=== PATIENT | female | born 1980 | race Caucasian/White ===

== ENCOUNTER 2021-05-01 02:15 | Observation (INO) | payer OTHER ==
[2021-05-01] MEDS ORDERED: Sodium Chloride 0.9% 1000 ML 1,000 ML IV STA (02:56)
[2021-05-01] MEDS ORDERED: BABY ASPIRIN 81 MG CHEW PO ONE (02:56)
[2021-05-01] MEDS ORDERED: solu-MEDROL 125 MG, Sterile H2O 10 ml 2 ML IV ONE ×2 (02:58)
[2021-05-01] MEDS ORDERED: DUONEB 0.5-3 MG/3 ml Neb IH ONE ×2 (02:58→03:07)
[2021-05-01] MEDS ORDERED: Sodium Chloride 0.9% 1000 ML 1,000 ML ONE (03:04)
[2021-05-01] MEDS ORDERED: solu-MEDROL ONE (03:04)
--- NOTE | 2021-05-01 03:06 | ERPHSYRPT ---
- History of Present Illness Time Seen by Provider: 05/01/21 02:50 Source: patient Exam Limitations: no limitations Patient Subjective Stated Complaint: C/O heart palpitations upon arrival. Patient then stated that she has been SOB and coughing for a few days. States that this is not unusual for her because she has COPD but now she is coughing up yellow sputum and started running a temperature of 102. Triage Nursing Assessment: Patient ambulated back to ED. Patient SOB with audible wheezing. She is alert and oriented and answering questions a ppropriately. O2 sats 89% on room air upon arrival. 02 at 2L per N/C applied and oxygen saturation increased to 95%. Physician History: Patient is here with wheezing, hypoxia, not feeling well. Patient states that she had Covid in February and had a negative Covid test this weekend. 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 She has a history of asthma, smoking, obesity . She states that she has been using her home albuterol. Denies she presents with palpitations, wheezing, shortness of breath. She was placed on 2 L of oxygen due to an O2 sat of 89% upon arrival. She has no falls, trauma. She has no documented fever here. Patient has been taking Tylenol at home. Timing/Duration: today Activities at Onset: none Severity of Dyspnea-Max: mild Severity of Dyspnea-Current: mild Possible Cause: smoke exposure Modifying Factors: Improves With: oxygen Associated Symptoms: constant, wheezing, No chest pain/discomfort Allergies/Adverse Reactions: meperidine HCl [From Demerol] Allergy (Verified 05/01/21 02:22) Vomiting Home Medications: Albuterol Sulfate [Albuterol Sulfate Hfa] 2 puff PO Q4H PRN PRN 05/01/21 [History] Hx Tetanus, Diphtheria Vaccination/Date Given: Yes Hx Influenza Vaccination/Date Given: No Hx Pneumococcal Vaccination/Date Given: No Immunizations Up to Date: Yes Travel Risk - International Travel Have you traveled outside of the country in past 3 weeks: No - Coronavirus Screening Are you exhibiting any of the following symptoms?: Yes Symptoms: Shortness of Breath Close contact with a COVID-19 positive Pt in past 14-21 Days: Yes - Vaccine Status Have you recieved a Covid-19 vaccination: Yes Broke Man: [employer] POS - Vaccination Dates Date of 2cond Vaccination (if applicable): February 2020 - Review of Systems Constitutional: No Fever, No Chills Eyes: No Symptoms Ears, Nose, & Throat: No Symptoms Respiratory: Dyspnea, Wheezing, No Cough Cardiac: Palpitations, No Chest Pain, No Edema, No Syncope Abdominal/Gastrointestinal: No Abdominal Pain, No Nausea, No Vomiting, No Diarrhea Genitourinary Symptoms: No Dysuria Musculoskeletal: No Back Pain, No Neck Pain Skin: No Rash Neurological: No Dizziness, No Focal Weakness, No Sensory Changes Psychological: No Symptoms Endocrine: No Symptoms All Other Systems: Reviewed and Negative - Past Medical History Pertinent Past Medical History: Yes Neurological History: No Pertinent History ENT History: No Pertinent History Cardiac History: No Pertinent History Respiratory History: Asthma, COPD, Emphysema Endocrine Medical History: No Pertinent History Musculoskeletal History: No Pertinent History, Other GI Medical History: No Pertinent History History: No Pertinent History Psycho-Social History: Depression Female Reproductive Disorders: No Pertinent History - Past Surgical History Past Surgical History: Yes Neuro Surgical History: No Pertinent History Cardiac: No Pertinent History Respiratory: No Pertinent History Gastrointestinal: No Pertinent History Genitourinary: No Pertinent History Musculoskeletal: No Pertinent History Female Surgical History: Tubal Ligation - Social History Smoking Status: Current every day smoker How long have you smoked: 20 years Exposure to second hand smoke: Yes Drug Use: marijuana Patient Lives Alone: No - Female History Hx Last Menstrual Period: NOW Hx Now: No - Nursing Vital Signs Nursing Vital Signs: Initial Vital Signs Temperature 99.1 F 05/01/21 02:23 Pulse Rate 114 H 05/01/21 02:23 Respiratory Rate 24 05/01/21 02:23 Blood Pressure 123/73 05/01/21 02:23 O2 Sat by Pulse Oximetry 90 L 05/01/21 02:23 Pain Scale Pain Intensity 0 - Physical Exam General Appearance: no apparent distress, alert, other (Overall, patient appears unwell and unhealthy.) Eye Exam: PERRL/EOMI Neck Exam: normal inspection, supple Respiratory Exam: wheezing, other (Wheezing, tachycardia, tachypnea) Cardiovascular/Chest Exam: normal heart sounds, tachycardia, No regular rate/rhythm Abdominal/Gastrointestinal Exam: soft, No tenderness, No distention, No mass Extremity Exam: non-tender, normal range of motion, normal inspection, no calf tenderness, no pedal edema Neurologic Exam: alert, oriented x 3, cooperative, stable hand II-XII nml as tested, sensation nml, No motor deficits Skin Exam: normal color, warm, No dry SpO2 Interpretation: hypoxic SpO2: 90 - Course Nursing assessment & vital signs reviewed: Yes EKG Interpreted by Me: Sinus Tach Ordered Tests: Active Orders 24 hr Category Date Time Status Field Marketing Lead STAT Care 05/01/21 02:57 Active Code Status Order ROUTINE Care 05/01/21 04:09 Ordered EKG-ER Only STAT Care 05/01/21 02:56 Active IV Care Q6H Care 05/01/21 04:09 Ordered IV Insertion STAT Care 05/01/21 02:[address] in Observation ROUTINE Care 05/01/21 04:10 Ordered [place], Apply ROUTINE Care 05/01/21 04:09 Ordered Weight,Daily 0600 Care 05/01/21 04:09 Ordered House Regular Diet Diet 05/01/21 Breakfast Ordered CHEST 1 VIEW (PORTABLE) Stat Exams 05/01/21 02:57 Taken CBC W DIFF Stat Lab 05/01/21 03:00 Completed CMP Stat Lab 05/01/21 03:00 Completed D-DIMER QUANTITATIVE Stat Lab 05/01/21 03:00 Completed HCG QUALITATIVE,SERUM Stat Lab 05/01/21 03:00 Completed INFLUENZA A+B RYAN Stat Lab 05/01/21 03:00 Completed Manual Differential NC Stat Lab 05/01/21 03:00 Completed NT PRO BNP Stat Lab 05/01/21 03:00 Completed TROPONIN Q3H Lab 05/01/21 03:00 Completed TROPONIN Q3H Lab 05/01/21 06:00 Ordered TROPONIN Q3H Lab 05/01/21 09:00 Ordered TROPONIN Q3H Lab 05/01/21 12:00 Ordered TROPONIN Q3H Lab 05/01/21 15:00 Ordered Oxygen Nasal Cannula 2 lpm RT 05/01/21 04:10 Ordered Respiratory Therapy Assessment DAILY RT 05/01/21 03:11 Active Respiratory Therapy Consult ROUTINE RT 05/01/21 04:10 Ordered Medication Summary Generic Name Dose Route Start Last Admin Trade Name Freq PRN Reason Stop Dose Admin Magnesium Sulfate/Dextrose 100 mls @ 100 mls/hr 05/01/21 04:00 05/01/21 03:54 Magnesium 1 Gm / 100 Ml D5w IV 05/01/21 05:59 100 mls/hr Q1H TANK Administration Ceftriaxone Sodium/Dextrose 2 g in 50 mls @ 100 mls/hr 05/01/21 04:03 Rocephin 2 Gm-D5w 50ml Bag IV 05/01/21 04:32 STAT STA Azithromycin 500 mg in 250 mls @ 250 mls/hr 05/01/21 04:04 Zithromax 500 Mg/ 250 Ml Nacl Premix IV 05/01/21 05:03 STAT ONE Discontinued Medications Generic Name Dose Route Start Last Admin Trade Name Freq PRN Reason Stop Dose Admin Albuterol Sulfate 5 mg 05/01/21 03:50 05/01/21 04:03 Albuterol Sulfate 2.5 Mg/3 Ml Neb IH 05/01/21 03:51 5 mg STAT ONE Administration Albuterol Sulfate Confirm 05/01/21 04:02 Albuterol Sulfate 2.5 Mg/3 Ml Neb Administered 05/01/21 04:03 Dose 2.5 mg IH .STK-MED ONE Albuterol Sulfate Confirm 05/01/21 04:04 Albuterol Sulfate 2.5 Mg/3 Ml Neb Administered 05/01/21 04:05 Dose 2.5 mg IH .STK-MED ONE Albuterol/Ipratropium 3 ml 05/01/21 02:58 05/01/21 03:08 Ipratropium/Albuterol Sulfate 3 Ml Ampul.Neb IH 05/01/21 02:59 3 ml STAT ONE Administration Albuterol/Ipratropium Confirm 05/01/21 03:07 Ipratropium/Albuterol Sulfate 3 Ml Ampul.Neb Administered 05/01/21 03:08 Dose 3 ml IH .STK-MED ONE Aspirin 324 mg 05/01/21 02:56 05/01/21 03:03 Aspirin 81 Mg Tab.Chew PO 05/01/21 02:57 324 mg STAT ONE Administration Methylprednisolone Sodium 0 mg 05/01/21 02:58 05/01/21 03:05 Succinate 125 mg/ Sterile IV 05/01/21 02:59 125 mg Water 2 ml STAT ONE Administration Sodium Chloride 1,000 mls @ 999 mls/hr 05/01/21 02:56 05/01/21 03:07 Sodium Chloride 0.9% 1000 Ml IV 05/01/21 03:56 999 mls/hr .Q1H1M STA Administration Sodium Chloride Confirm 05/01/21 03:04 Sodium Chloride 0.9% 1000 Ml Administered 05/01/21 03:05 Dose 1,000 mls @ ud .ROUTE .STK-MED ONE Methylprednisolone Sodium Succinate Confirm 05/01/21 03:04 Methylprednis Sod Succ 125 Mg/2 Ml Vial Administered 05/01/21 03:05 Dose 125 mg .ROUTE .STK-MED ONE Lab/Rad Data: Laboratory Result Diagrams 05/01/21 03:00 05/01/21 03:00 Laboratory Results 05/01/21 05/01/21 05/01/21 Range/Units 03:00 03:00 03:00 WBC (4.0-10.5) K/mm3 RBC (4.1-5.4) M/mm3 Hgb (12.0-16.0) gm/dl Hct (35-47) % MCV (78-100) fl MCH (26-32) pg MCHC (32-36) g/dl RDW (11.5-14.0) % Plt Count (150-450) K/mm3 MPV (7.5-11.0) fl Segmented Neutrophils (36.0-66.0) % Lymphocytes (Manual) (24-44) % Monocytes (Manual) (0.0-12.0) % Platelet Estimate (NORMAL) RBC Morphology D-Dimer (215-500) ng/mL Sodium (137-145) mmol/L Potassium (3.5-5.1) mmol/L Chloride (98-107) mmol/L Carbon Dioxide (22-30) mmol/L Anion Gap (5-15) MEQ/L BUN (7-17) mg/dL Creatinine (0.52-1.04) mg/dL Estimated GFR ML/MIN Glucose (74-106) mg/dL Calcium (8.4-10.2) mg/dL Total Bilirubin (0.2-1.3) mg/dL AST (14-36) U/L ALT (0-35) U/L Alkaline Phosphatase (38-126) U/L Troponin I < 0.012 (0.000-0.034) ng/mL NT-Pro-B Natriuret Pep (0-450) pg/mL Serum Total Protein (6.3-8.2) g/dL Albumin (3.5-5.0) g/dL Serum , Qual NEGATIVE (Negative) Influenza Type A Ag NEGATIVE (NEGATIVE) Influenza Type B Ag NEGATIVE (NEGATIVE) 05/01/21 05/01/21 05/01/21 Range/Units 03:00 03:00 03:00 WBC 9.9 (4.0-10.5) K/mm3 RBC 5.40 (4.1-5.4) M/mm3 Hgb 16.1 H (12.0-16.0) gm/dl Hct 51.6 H (35-47) % MCV 95.6 (78-100) fl MCH 29.8 (26-32) pg MCHC 31.2 L (32-36) g/dl RDW 13.2 (11.5-14.0) % Plt Count 166 (150-450) K/mm3 MPV 11.6 H (7.5-11.0) fl Segmented Neutrophils 68 H (36.0-66.0) % Lymphocytes (Manual) 27 (24-44) % Monocytes (Manual) 5 (0.0-12.0) % Platelet Estimate NORMAL (NORMAL) RBC Morphology NORMAL D-Dimer 409 (215-500) ng/mL Sodium 139 (137-145) mmol/L Potassium 3.9 (3.5-5.1) mmol/L Chloride 97 L (98-107) mmol/L Carbon Dioxide 33 H (22-30) mmol/L Anion Gap 12.8 (5-15) MEQ/L BUN 16 (7-17) mg/dL Creatinine 0.69 (0.52-1.04) mg/dL Estimated GFR > 60.0 ML/MIN Glucose 132 H (74-106) mg/dL Calcium 9.0 (8.4-10.2) mg/dL Total Bilirubin 0.50 (0.2-1.3) mg/dL AST 26 (14-36) U/L ALT 16 (0-35) U/L Alkaline Phosphatase 99 (38-126) U/L Troponin I (0.000-0.034) ng/mL NT-Pro-B Natriuret Pep 73.0 (0-450) pg/mL Serum Total Protein 7.6 (6.3-8.2) g/dL Albumin 4.2 (3.5-5.0) g/dL Serum , Qual (Negative) Influenza Type A Ag (NEGATIVE) Influenza Type B Ag (NEGATIVE) - Progress Progress: improved Air Movement: good Progress Note: 05/01/21 03:04 Differential diagnosis includes pulmonary embolism, pneumonia, infection, myocardial infarction, asthma attack, COPD, sleep apnea. -We will obtain basic labs, fluids, EKG, chest x-ray -We will give steroids, fluids, aspirin, breathing treatment. -We will consider CTA should D-dimer returned positive. Given that patient is currently hypoxic. We will see if she improves. 05/01/21 04:12 Patient found to continue to be hypoxic. 2 L of O2 needed despite fluids, breathing treatment, steroids. Patient will be given a second albuterol treatment with magnesium. Patient is still significantly wheezy. Chest x-ray was obtained. Bilateral infiltrates, inflammatory versus infectious. We will give a dose of Rocephin and azithromycin in the emergency department. I did discuss over the phone with on-call physician, Dr. Whitmore. He will accept the patient. I do feel this is the best course of action for the patient. I discussed with her the plan. Patient most likely also has underlying sleep apnea given her obesity and general state of health. Possible testing for this would be helpful. Influenza negative. Patient will be swabbed for Covid as an inpatient due to hospital testing procedures and policies. Negative home test this week. ED critical care statement As staff physician, I have provided critical care. Time: 45 mins Criteria for critical illness: Acute hypoxic respiratory failure in the setting of asthma with pneumonia Treatment and management provided include: Coordination of management with ETC care team, consultants, and inpatient care team. [id number] assessment of condition and response to therapy. Review and interpretation of emergent diagnostic testing. Medical chart review and completion. Direction and immediate supervision of the following therapy: Critical care was time spent personally by me on the following activities: blood draw for specimens, development of treatment plan with patient or surrogate, discussions with consultants, discussions with primary provider, interpretation of cardiac output measurements, evaluation of patient's response to treatment, examination of patient, obtaining history from patient or surrogate, ordering and performing treatments and interventions, ordering and review of laboratory studies, ordering and review of radiographic studies, pulse oximetry, re-evaluation of patient's condition and review of old charts. This time was independent of all procedures performed. Damian Johnson 05/01/21 04:[address] Ranulfo Will see patient in: hospital (observation) Counseled pt/family regarding: lab results, diagnosis, rad results, smoking cessation - Departure Departure Disposition: Extended Care Facility Clinical Impression: Acute respiratory failure, COVID-19 long hauler, Community acquired pneumonia, Asthma exacerbation in COPD Condition: Stable Critical Care Time: Yes Critical Care Time(excluding separately billable procedures): Critical 30-74 mins Referrals: Gisele Nino BRIQUETTE MOLDER [NON-STAFF PHY W/O PRIVILEGES] - Follow up/PCP as directed Instructions: Chronic Obstructive Pulmonary Disease
[2021-05-01 03:22] LABS: Hematocrit 51.6 % (35-47); Hemoglobin 16.1 gm/dl (12.0-16.0); Mean Cell Volume 95.6 fl (78-100); Mean Corpuscular Hemoglobin 29.8 pg (26-32); Mean Corpuscular Hgb Concent. 31.2 g/dl (32-36); Mean Platelet Volume 11.6 fl (7.5-11.0); Platelet Count 166 K/mm3 (150-450); Red Cell Distribution Width 13.2 % (11.5-14.0); White Blood Count 9.9 K/mm3 (4.0-10.5)
[2021-05-01 03:34] LABS: ALBUMIN 4.2 g/dL (3.5-5.0); ALKALINE PHOSPHATASE 99 U/L (38-126); ANION GAP 12.8 MEQ/L (5-15); BLOOD UREA NITROGEN 16 mg/dL (7-17); CHLORIDE 97 mmol/L (98-107); Carbon Dioxide 33 mmol/L (22-30); Creatinine 1 0.69 mg/dL (0.52-1.04); EST GLOMERULAR FILTRATION RATE > 60.0 ML/MIN; Glucose 132 mg/dL (74-106); Potassium 3.9 mmol/L (3.5-5.1); SGOT/AST 26 U/L (14-36); SGPT/ALT 16 U/L (0-35); SODIUM 139 mmol/L (137-145); Total Protein 7.6 g/dL (6.3-8.2)
[2021-05-01 03:39] LABS: INFLUENZA A NEGATIVE (NEGATIVE); INFLUENZA B NEGATIVE (NEGATIVE)
[2021-05-01 03:46] LABS: Lymphocytes 27 % (24-44); Monocyte 5 % (0.0-12.0); Neutrophils 68 % (36.0-66.0); Platelet Estimate NORMAL (NORMAL); Total Cells Counted 100
[2021-05-01] MEDS ORDERED: PROVENTIL 2.5 MG/3 ML NEB IH ONE ×3 (03:50→04:04)
[2021-05-01] MEDS: Magnesium 1 Gm / 100 Ml D5W*** 100 ML IV SCH ×2 (03:54→04:26)
[2021-05-01] MEDS ORDERED: ROCEPHIN 2 Gm-D5w 50ML BAG** 2 G/50 ML IVPB IV STA (04:03)
[2021-05-01] MEDS ORDERED: Zithromax 500 MG/ 250 ML NaCl Premix 500 MG/250 ML IVPB IV ONE ×2 (04:04→05:26)
[2021-05-01] MEDS ORDERED: ROCEPHIN 2 Gm-D5w 50ML BAG** 2 G/50 ML IVPB IV ONE (04:38)
[2021-05-01 05:17] LABS: INFLUENZA A NEGATIVE (NEGATIVE); INFLUENZA B NEGATIVE (NEGATIVE); RESPIRATORY SYNCTIAL VIRUS NEGATIVE (Negative); SARS-CoV-2 Xpert Express NEGATIVE (NEGATIVE)
[2021-05-01] MEDS ORDERED: solu-MEDROL 125 MG, Sterile H2O 10 ml 2 ML IV SCH ×2 (06:00)
[2021-05-01] MEDS ORDERED: Ventolin Hfa MDI IH PRN (08:16)
[2021-05-01] MEDS ORDERED: VENTOLIN COMMON CANISTER IH PRN (08:17)
--- NOTE | 2021-05-01 08:58 | XRAY ---
Indication: "Heart racing." Comparison: March 19, 2021. Portable chest limited due to suboptimal technique/body habitus. Query left lung hazy airspace disease without consolidation/large effusion. Heart not enlarged. Bony thorax intact.
[2021-05-01] MEDS: Nicoderm CQ 21 MG TOP SCH (09:12)
[2021-05-01] MEDS: DUONEB 0.5-3 MG/3 ml Neb IH SCH ×4 (10:48→22:38)
[2021-05-01] MEDS: solu-MEDROL 125 MG, Sterile H2O 10 ml 2 ML IV SCH ×4 (13:23→22:15)
[2021-05-01] MEDS: Zithromax 500 MG/ 250 ML NaCl Premix 500 MG/250 ML IVPB IV SCH (22:15)
[2021-05-01] MEDS: ROCEPHIN 1 Gm-D5w 50 ml Bag** 1 G/50 ML IVPB IV SCH (23:00)
[2021-05-02] MEDS: DUONEB 0.5-3 MG/3 ml Neb IH SCH ×6 (03:04→22:15)
[2021-05-02 05:10] LABS: Hematocrit 50.1 % (35-47); Hemoglobin 15.5 gm/dl (12.0-16.0); Mean Cell Volume 96.3 fl (78-100); Mean Corpuscular Hemoglobin 29.8 pg (26-32); Mean Corpuscular Hgb Concent. 30.9 g/dl (32-36); Platelet Count 159 K/mm3 (150-450); Red Cell Distribution Width 13.2 % (11.5-14.0); White Blood Count 13.9 K/mm3 (4.0-10.5)
[2021-05-02] MEDS ORDERED: solu-MEDROL ONE ×2 (05:58→21:21)
[2021-05-02] MEDS: solu-MEDROL 125 MG, Sterile H2O 10 ml 2 ML IV SCH ×2 (06:06)
[2021-05-02 06:10] LABS: ALBUMIN 3.8 g/dL (3.5-5.0); ALKALINE PHOSPHATASE 98 U/L (38-126); ANION GAP 12.4 MEQ/L (5-15); BLOOD UREA NITROGEN 15 mg/dL (7-17); CHLORIDE 102 mmol/L (98-107); Calcium 8.8 mg/dL (8.4-10.2); Carbon Dioxide 27 mmol/L (22-30); Creatinine 1 0.44 mg/dL (0.52-1.04); EST GLOMERULAR FILTRATION RATE > 60.0 ML/MIN; Glucose 140 mg/dL (74-106); Potassium 4.6 mmol/L (3.5-5.1); SGOT/AST 24 U/L (14-36); SGPT/ALT 16 U/L (0-35); SODIUM 137 mmol/L (137-145); Total Protein 7.3 g/dL (6.3-8.2)
[2021-05-02] MEDS: ATARAX 25 MG PO PRN ×2 (09:50→22:04)
[2021-05-02] MEDS: TYLENOL EXTRA STRENGTH 500 MG PO PRN (09:50)
[2021-05-02] MEDS: Nicoderm CQ 21 MG TOP SCH (09:50)
--- NOTE | 2021-05-02 10:28 | XRAY ---
Indication: Pneumonia. Comparison: One day earlier. PA/lateral chest now limited by minimal respiration artifact. New minimal left base subsegmental atelectasis/scarring. No focal infiltrate, consolidation, or large effusion. Heart not enlarged again with incidental left infrahilar calcified node. Bony thorax intact with stable benign right 7 rib sclerotic lesion dating back to CT abdomen June 08, 2011. Impression: Minimal respiration artifact. New left base subsegmental atelectasis/scarring. No acute cardiopulmonary abnormalities. CT chest may yield further information if there remains clinical concern.
[2021-05-02] MEDS: solu-MEDROL 80 MG, Sterile H2O 10 ml 2 ML IV SCH ×4 (14:28→22:04)
[2021-05-02] MEDS: Tums EX 750 MG PO PRN (19:56)
[2021-05-02] MEDS ORDERED: hydroDIURIL 25 MG PO SCH (22:00)
[2021-05-02] MEDS: ROCEPHIN 1 Gm-D5w 50 ml Bag** 1 G/50 ML IVPB IV SCH (22:10)
[2021-05-02] MEDS: Zithromax 500 MG/ 250 ML NaCl Premix 500 MG/250 ML IVPB IV SCH (22:10)
[2021-05-03] MEDS: DUONEB 0.5-3 MG/3 ml Neb IH SCH ×4 (03:13→19:05)
[2021-05-03 05:08] LABS: Hematocrit 47.5 % (35-47); Hemoglobin 14.7 gm/dl (12.0-16.0); Mean Corpuscular Hemoglobin 29.7 pg (26-32); Mean Corpuscular Hgb Concent. 30.9 g/dl (32-36); Mean Platelet Volume 11.7 fl (7.5-11.0); Platelet Count 190 K/mm3 (150-450); Red Blood Count 4.95 M/mm3 (4.1-5.4); Red Cell Distribution Width 13.4 % (11.5-14.0); White Blood Count 15.4 K/mm3 (4.0-10.5)
[2021-05-03 05:24] LABS: ALBUMIN 3.7 g/dL (3.5-5.0); ALKALINE PHOSPHATASE 87 U/L (38-126); ANION GAP 10.4 MEQ/L (5-15); BLOOD UREA NITROGEN 17 mg/dL (7-17); CHLORIDE 100 mmol/L (98-107); Calcium 9.1 mg/dL (8.4-10.2); Carbon Dioxide 31 mmol/L (22-30); Creatinine 1 0.55 mg/dL (0.52-1.04); EST GLOMERULAR FILTRATION RATE > 60.0 ML/MIN; Glucose 141 mg/dL (74-106); Potassium 4.7 mmol/L (3.5-5.1); SGOT/AST 28 U/L (14-36); SGPT/ALT 21 U/L (0-35); SODIUM 137 mmol/L (137-145); Total Protein 6.9 g/dL (6.3-8.2)
[2021-05-03] MEDS: solu-MEDROL 80 MG, Sterile H2O 10 ml 2 ML IV SCH ×2 (06:38)
[2021-05-03 06:57] LABS: Lymphocytes 6 % (24-44); Neutrophils 94 % (36.0-66.0); Total Cells Counted 100
[2021-05-03 07:03] LABS: Platelet Estimate NORMAL (NORMAL)
--- NOTE | 2021-05-03 08:56 | HP ---
CHIEF COMPLAINT: Shortness of breath, low oxygen saturation. HISTORY OF PRESENT ILLNESS: The patient is a 40-year-old white female who presented to the emergency room with hypoxia. 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 She reported that she was not feeling well and they checked her saturations and they were 83% on room air. The patient presented to the emergency room where she was found to be wheezing. She does have a history of chronic obstructive pulmonary disease and is a smoker. The patient has not been in for routine follow ups in over three years. The patient reports she is just stubborn and did not want to come in. She has gotten significantly more obese over time and currently is actually quite morbidly obese. PAST MEDICAL/SURGICAL HISTORY: Otherwise she reportedly has been getting medicine from friends and in fact even has a CPAP machine. She has had menstrual cycle problems as well and bleeding issues which she did previously have significant HPV at the time of her 18 years ago and she has never had it reassessed since that time. HOME MEDICATIONS: She is apparently on no routine home medicines other than Albuterol on a PRN basis. She reports she has been getting quick fixes from her nurse practitioner at work. She does occasionally also use THC as well as smoking. ALLERGIES: MEPERIDINE. PHYSICAL EXAMINATION: The patient's vital signs on admission showed her temperature to be 99.1F in the emergency room. The pulse is 114, respiratory rate 24, blood pressure 123/73. O2 saturation at that time was 90% on undisclosed amount of oxygen. HEENT: Normocephalic, atraumatic. Pupils equal round reactive to light. Extraocular movements intact. Oropharynx is pink and moist. NECK: Supple without lymphadenopathy, thyromegaly or JVD. CHEST: Revealed wheezing throughout anterior and posteriorly on both sides. HEART: Regular rate and rhythm. No significant murmurs, rubs or gallops heard. ABDOMEN: Protuberant. No masses were felt. EXTREMITIES: Without cyanosis, clubbing or edema. NEUROLOGIC: The patient is alert and oriented x3. No focal deficits were noted. LAB DATA AND TESTS: The patient's chest x-ray studies were limited due to body habitus and showed a possible left airspace disease without consolidation. She did also have blood work which showed her to be negative for respiratory syncytial virus, COVID and influenza. Her troponin was less than 0.012. Lactic acid was 2.4 initially. Procalcitonin was 0.050. Hemoglobin A1C was 5.77. Her metabolic panel showed a glucose of 140, BUN 15, creatinine 0.44. Liver enzymes and electrolytes were normal. Her white count was 13,900, hemoglobin 16.5, PLT count 159,000. ASSESSMENT: A patient with exacerbation of chronic obstructive pulmonary disease, hypoxia and morbid obesity. The patient has been admitted to the hospital. She has been placed empirically on Rocephin and Zithromax. She is on supplemental oxygen and is getting IV Solu-Medrol at 125 every six hours and PRN nebulizer treatments.
[2021-05-03] MEDS ORDERED: hydroDIURIL 25 MG PO SCH (10:00)
[2021-05-03] MEDS: Nicoderm CQ 21 MG TOP SCH (10:40)
[2021-05-03] MEDS: TYLENOL EXTRA STRENGTH 500 MG PO PRN (10:47)
[2021-05-03] MEDS: solu-MEDROL 60 MG, Sterile H2O 10 ml 2 ML IV SCH ×4 (14:49→22:07)
[2021-05-03] MEDS: Tums EX 750 MG PO PRN ×2 (14:54→20:30)
[2021-05-03] MEDS ORDERED: solu-MEDROL ONE (21:02)
[2021-05-03] MEDS: Zithromax 500 MG/ 250 ML NaCl Premix 500 MG/250 ML IVPB IV SCH (22:07)
[2021-05-03] MEDS: ROCEPHIN 1 Gm-D5w 50 ml Bag** 1 G/50 ML IVPB IV SCH (22:24)
[2021-05-04] MEDS: ATARAX 25 MG PO PRN (00:19)
[2021-05-04 05:05] LABS: Hematocrit 49.5 % (35-47); Hemoglobin 15.4 gm/dl (12.0-16.0); Mean Cell Volume 95.9 fl (78-100); Mean Corpuscular Hemoglobin 29.8 pg (26-32); Mean Corpuscular Hgb Concent. 31.1 g/dl (32-36); Mean Platelet Volume 11.6 fl (7.5-11.0); Platelet Count 201 K/mm3 (150-450); Red Blood Count 5.16 M/mm3 (4.1-5.4); Red Cell Distribution Width 13.6 % (11.5-14.0); White Blood Count 13.9 K/mm3 (4.0-10.5)
[2021-05-04 05:14] LABS: ALBUMIN 3.9 g/dL (3.5-5.0); ALKALINE PHOSPHATASE 93 U/L (38-126); ANION GAP 11.7 MEQ/L (5-15); BLOOD UREA NITROGEN 22 mg/dL (7-17); CHLORIDE 96 mmol/L (98-107); Calcium 9.2 mg/dL (8.4-10.2); Carbon Dioxide 32 mmol/L (22-30); Creatinine 1 0.58 mg/dL (0.52-1.04); EST GLOMERULAR FILTRATION RATE > 60.0 ML/MIN; Glucose 136 mg/dL (74-106); Potassium 4.5 mmol/L (3.5-5.1); SGOT/AST 30 U/L (14-36); SGPT/ALT 32 U/L (0-35); SODIUM 136 mmol/L (137-145); Total Protein 7.2 g/dL (6.3-8.2)
[2021-05-04] MEDS ORDERED: solu-MEDROL ONE (05:26)
[2021-05-04] MEDS: solu-MEDROL 60 MG, Sterile H2O 10 ml 2 ML IV SCH ×2 (06:22)
[2021-05-04] MEDS: DUONEB 0.5-3 MG/3 ml Neb IH SCH (07:09)
[2021-05-04 07:33] VITALS: BP 135/93; PULSE 67; O2SAT 93
--- NOTE | 2021-05-04 08:17 | DS ---
DISCHARGE DIAGNOSES: 1) ACUTE EXACERBATION OF CHRONIC OBSTRUCTIVE PULMONARY DISEASE. 2) HYPOXIA. 3) MORBID OBESITY. HISTORY: The patient is a 40-year-old white female who has been quite stubborn about coming in for treatment. 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 On the morning of admission she was noted to have an O2 saturation of 83% range and was quite dyspneic. She was sent in for evaluation and admitted for further evaluation and management. HOSPITAL COURSE: The patient was admitted to the medicine anderson. She was given IV Solu-Medrol 125 every six hours, initially Rocephin and Zithromax, nebulizer treatments and supplemental oxygen. The patient improved with this although the wheezing was stubborn as well and required IV Solu-Medrol but we were able to decrease it each day. By the morning of 05/04/2021, she was in bed without any oxygen. We had tried CPAP the previous two evenings and the patient reports that she did well with this. We will check into this as outpatient to see about getting her own home CPAP machine. At this time the patient's O2 saturation is 96% on room air. Her most recent labs showed her sugar to be 136 fasting, BUN 23, creatinine 0.58. White count 13.9. Her chest x-ray had shown left base subsegmental atelectasis otherwise is negative. At this point in time, the patient is felt ready for discharge home. She will be on prednisone 30 mg for five days, 20 mg for five days, 10 mg for five days. We will refill her Albuterol to be sure she has some non- medication. She will be on Augmentin 875 twice a day for additional five days. She will see me in follow up in the office in four days.
== END 2021-05-04 09:35 | disposition home or self-care (01) ==
LOC: ED 02:15 → MED SURG 05:52
PROVIDERS: ADMIT Family Medicine; ATTEND Family Medicine
DX: J44.1 Chronic obstructive pulmonary disease with (acute) exacerbation (principal); R09.02 Hypoxemia; E66.01 Morbid (severe) obesity due to excess calories; Z72.0 Tobacco use; Z79.899 Other long term (current) drug therapy; Z20.828 Contact with and (suspected) exposure to other viral communicable diseases
CPT/HCPCS: 0241U; 36000; 36415; 71045; 71046; 80053; 81025; 83036; 83605; 83880; 84145; 84484; 85025; 85027; 85379; 87400; 93005; 93041; 93268; 94640; 94660; 94667; 94760; 94762; 96365; 96366; 96367; 96374; 99285; 99291; G0378; 94002; J0456; J0696; J2930; J3475; J7609; A9270-GY